=== PATIENT | female | born 2000 | race Two or more races ===

== ENCOUNTER 2024-02-21 04:35 | Emergency (ER) | payer MEDICAID, OTHER ==
[~2024-02-21] VITALS: Ht 167.6 cm; Wt 70.3 kg
[2024-02-21] MEDS ORDERED: KETOROLAC TROMETHAMINE INJ 30 MG/ML VIAL ONE (05:13)
[2024-02-21] MEDS ORDERED: ONDANSETRON HCL/PF 4 MG/2 ML VIAL ONE (05:13)
[2024-02-21] MEDS ORDERED: PANTOPRAZOLE 40 MG VIAL ONE (05:13)
[2024-02-21 05:30] LABS: BASOPHILS % (AUTO) 0.3 % (0.0-2.0); EOSINOPHILS # (AUTO) 0.1 K/uL (0.0-0.7); EOSINOPHILS % (AUTO) 0.8 % (0.0-6.0); HEMATOCRIT 42 % (33-45); HEMOGLOBIN 13.7 g/dL (11.5-14.8); LYMPHOCYTES # (AUTO) 2.6 K/uL (0.8-4.8); LYMPHOCYTES % (AUTO) 18.6 % (20.0-44.0); MEAN CORPUSCULAR HEMOGLOBIN 28 PG (26.0-33.0); MEAN CORPUSCULAR HGB CONC 33 g/dl (31.0-36.0); MEAN CORPUSCULAR VOLUME 86 fL (82-100); MONOCYTES # (AUTO) 0.7 K/uL (0.1-1.30); NEUTROPHILS # (AUTO) 10.3 K/uL (1.8-8.9); NEUTROPHILS % (AUTO) 75.3 % (43.0-81.0); PLATELET COUNT (AUTO) 300 K/uL (150-450); RED BLOOD CELL COUNT(AUTO) 4.87 MIL/uL (4.0-5.2); WHITE BLOOD COUNT (AUTO) 13.7 K/uL (4.3-11.0)
[2024-02-21] MEDS: IV NS 0.9% 1,000 ML BAG IV ONE (05:30)
[2024-02-21] MEDS: ONDANSETRON HCL/PF 4 MG/2 ML VIAL IVP ONE (05:30)
[2024-02-21] MEDS: PANTOPRAZOLE 40 MG VIAL IV ONE (05:30)
[2024-02-21 05:36] LABS: APPEARANCE,URINE CLEAR (CLEAR); BILIRUBIN,URINE NEGATIVE (NEGATIVE); BLOOD, URINE NEGATIVE Ery/uL (NEGATIVE); COLOR,URINE YELLOW (YELLOW); KETONES,URINE NEGATIVE (NEGATIVE); LEUKOCYTE ESTERASE ,URINE TRACE (NEGATIVE); NITRITE, URINE NEGATIVE (NEGATIVE); PROTEIN,URINE NEGATIVE (NEGATIVE); UGLUCOSE NEGATIVE (NEGATIVE); UROBILINOGEN,URINE 0.2 EU/dL (0.2)
[2024-02-21 05:41] LABS: CALCIUM, SERUM 8.7 mg/dL (8.5-10.1); CREATININE 0.8 mg/dL (0.6-1.3); POTASSIUM 3.6 mmol/L (3.5-5.1)
[2024-02-21 05:46] LABS: PREGNANCY TEST URINE QUAL NEGATIVE (NEGATIVE)
[2024-02-21 05:47] LABS: ALBUMIN 3.9 g/dL (3.4-5.0); BILIRUBIN,DIRECT 0.1 mg/dL (0.0-0.2); BILIRUBIN,TOTAL 0.3 mg/dL (0.2-1.0); TOTAL PROTEIN, SERUM 7.5 g/dL (6.4-8.2)
[2024-02-21 05:57] LABS: RBC,URINE NONE SEEN /HPF (0-2)
[2024-02-21 05:58] LABS: ADD URINE CULTURE YES; BACTERIA,URINE 2+ /HPF (None Seen); SQUAMOUS EPITHELIAL CELL,UR 21-50 /HPF (None Seen)
[2024-02-21 06:17] VITALS: BP 110/56; TEMP 98.6; O2SAT 99
[2024-02-21] MEDS: KETOROLAC TROMETHAMINE 15 MG/ML VIAL IV ONE (06:17)
[2024-02-21] MEDS ORDERED: OMEP40CA21 PO (16:04)
[2024-02-21] MEDS ORDERED: ONDA4TAB5 PO (16:04)
== END 2024-02-21 06:27 | disposition left against medical advice (07) ==
LOC: ER 04:36
DX: R10.10 Upper abdominal pain, unspecified (principal); R11.2 Nausea with vomiting, unspecified; M25.511 Pain in right shoulder
CPT/HCPCS: 99284; 96374; 96375; 96361; 85025; 80048; 87086; 83690; 80076; 84703; 81001; 36415; J1885; J2405; J7030; J2470

== ENCOUNTER 2024-02-21 15:06 | Emergency (ER) | payer MEDICAID ==
[~2024-02-21] VITALS: Ht 172.7 cm; Wt 81.6 kg
[2024-02-21] MEDS ORDERED: ONDA4TAB5 PO (16:04)
[2024-02-21] MEDS ORDERED: OMEP40CA21 PO (16:04)
[2024-02-21 17:44] VITALS: BP 106/53; TEMP 98.1; O2SAT 99
== END 2024-02-21 16:30 | disposition home or self-care (01) ==
LOC: ER 15:13
DX: R10.13 Epigastric pain (principal); R11.2 Nausea with vomiting, unspecified
CPT/HCPCS: 76705-TC